=== PATIENT | female | born 1940 | race Caucasian/White ===

== ENCOUNTER 2016-08-03 10:21 | Emergency (ER) | payer OTHER ==
[2016-08-03] VITALS (10 sets, daily range): BP systolic 128–206; BP diastolic 67–96; PULSE 65–84; TEMP 36.8–36.9; O2SAT 91–97; Ht 162.6 cm; Wt 100.0 kg
[~2016-08-03] VITALS: Ht 162.6 cm; Wt 100.0 kg
[~2016-08-03 10:21] MED LIST: AMLO-114 PO; ASPI-113 PO; ATEN50TA8 PO; CHOL100010 PO; CLB/200 PO; CLON0.2T PO; CLTP PO; CTP2 PO; GLUCTAB7; HYDR-5688 PO; MULT-506 PO; OXYC-164 PO; SIMV10TA2 PO
--- NOTE | 2016-08-03 11:24 | DIAGNOSTIC IMAGING REPORT ---
RIGHT HIP UNILATERAL 2 VIEWS CLINICAL HISTORY: Possible dislocation. Right hip pain. COMPARISON: Pelvis and right hip radiographs December 30, 2012. FINDINGS: There is superolateral dislocation of the femoral component of the right hip arthroplasty with respect to the acetabular cup. No associated fracture is identified. IMPRESSION: Dislocated femoral component of the right hip arthroplasty. Electronically signed by: Abdifatah Velasquez M.D. 08/03/2016 11:23 AM Dictated Date/Time: 08/03/2016 11:22 AM
[2016-08-03] MEDS ORDERED: ONDANSETRON INJ 2 MG/ML 2 ML VIAL IV STA (11:27)
[2016-08-03] MEDS ORDERED: MoRPHine SULFATE 4 MG/ML 1 ML CARP\\VIAL IV STA (11:27)
--- NOTE | 2016-08-03 11:27 | DIAGNOSTIC IMAGING REPORT ---
CHEST ONE VIEW PORTABLE CLINICAL HISTORY: HIP DISLOCATION COMPARISON STUDY: Chest radiograph December 29, 2012. FINDINGS: No pneumothorax or pleural effusion is present. Mild to moderate cardiomegaly is unchanged. There is no evidence of pulmonary edema. There may be pulmonary vascular congestion. This is unchanged. No consolidation is identified. IMPRESSION: Mild to moderate cardiomegaly with pulmonary vascular congestion. No overt pulmonary edema. Electronically signed by: Abdifatah Velasquez M.D. 08/03/2016 11:26 AM Dictated Date/Time: 08/03/2016 11:25 AM
[2016-08-03] MEDS ORDERED: ASPI-461 PO (11:35)
[2016-08-03] MEDS ORDERED: CLON0.2T PO (11:37)
[2016-08-03] MEDS ORDERED: ATEN-173 PO (11:41)
[2016-08-03] MEDS ORDERED: CALC500C70 PO (11:43)
[2016-08-03] MEDS ORDERED: MELO7.5T5 PO (11:46)
[2016-08-03] MEDS ORDERED: CHOL1000 PO (11:47)
[2016-08-03] MEDS ORDERED: IBUP-103 PO (11:49)
[2016-08-03] MEDS ORDERED: MoRPHine SULFATE 10 MG/ML CARP/VIAL IV STA (12:19)
[2016-08-03] MEDS ORDERED: PROPOFOL IV EMULSION 10 MG/ML 20 ML VIAL IV ONE (13:30)
--- NOTE | 2016-08-03 13:58 | EMERGENCY ROOM VISIT NOTE ---
ED Visit Note First contact with patient: 11:17 I did evaluate and examine this patient myself. I did guide management for the patient. I agree with the PA's assessment as discussed. Please see the PAs dictation for further details. I did independently review the x-rays. She does have a hip dislocation. The hip was reduced by orthopedics under conscious sedation. I did perform the conscious sedation portion. Procedural Sedation Indication hip dislocation. Total time: 10 minutes. 13:45-55 Written consent was obtained after the risks and benefits were explained to the patient, including, but not limited to aspiration, allergic reaction, breathing difficulties, cardiac complications, vomiting, pain, event recall, bleeding, and /or infection. Pre-sedation examination and paperwork completed. The patient was on 100% oxygen via NRB prior to the procedure. Continous end tidal CO2 monitoring, pulse oximetry, and cardiac monitoring were utilized. Suction, airway equipment, medications, respiratory equipment, and appropriate personnel were prepared prior to the initiation of the procedure. A time out was taken. Sedation was achieved utilizing 100 mg of propofol. After I observed the patient had reached the appropriate level of sedation the main procedure was performed without complication. Sedation was discontinued and the monitoring continued. The patient recovered quickly from the effects of the medication without complication or adverse event.
--- NOTE | 2016-08-03 14:51 | DIAGNOSTIC IMAGING REPORT ---
SINGLE VIEW PELVIS; SINGLE VIEW RIGHT HIP CLINICAL HISTORY: Postreduction examination. FINDINGS: An AP portable view of the pelvis with a crosstable lateral portable view of the right hip are correlated with radiographs of the right hip performed 08/03/2016. The skeletal structures are osteopenic. No fracture is seen in the hips or bony pelvis. There has been successful reduction of the dislocated right hip arthroplasty with gnosticist of near anatomic alignment. A left hip arthroplasty is noted. Sclerotic change is identified in the sacroiliac joints. There is a nonobstructed abdominal bowel gas pattern. The overlying soft tissues are within normal limits. IMPRESSION: 1. There as been successful reduction of the dislocated right hip arthroplasty as compared to today's earlier examination. 2. No fracture is seen. Electronically signed by: Tacos Maynard M.D. 08/03/2016 2:50 PM Dictated Date/Time: 08/03/2016 2:48 PM
--- NOTE | 2016-08-03 16:28 | CONSULTATION REPORT ---
DATE OF CONSULTATION: 08/03/2016 DATE OF CONSULTATION: 08/03/2016. REASON FOR CONSULT: Right dislocated hip. HISTORY OF PRESENT ILLNESS: The patient is a 76-year-old white female known to our practice who states that this morning around 9:00 she was tying her shoes. When she went to tie her one shoe she ended up leaning forward and then felt the hip dislocate on the right side. She states that she had immediate pain and was unable to ambulate and was brought to the Emergency Room by her family. She was seen by the staff. X-rays were taken and it was found that she did have a dislocated right REYMUNDO. The patient had her total hip arthroplasty done by Dr. Rusty Delaney in 2003. She states that she has had several dislocations with his hip in the past; however it was not culminating in a dislocation every other week and the time she was actually seen for a dislocation of her right hip was in 2012 and was put back into place by Dr. Mendoza at that time. This is her third dislocation of the hip. Currently, she is in no acute distress and states she is having pain with her right hip whenever she tries to move it. PAST MEDICAL HISTORY: Hypertension, hypercholesterolemia, obesity, osteoarthritis. PAST SURGICAL HISTORY: She has had right and left total knee replacements, left total hip replacement, right total hip replacement. She has had a hysterectomy, cholecystectomy and left hand surgery. FAMILY HISTORY: Noncontributory. SOCIAL HISTORY: The patient does not use alcohol or tobacco. MEDICATIONS: Amlodipine 10 mg p.o. daily, aspirin 81 mg p.o. daily, atenolol 25 mg p.o. daily, Os-Toni 500 plus D 1 tab p.o. b.i.d., vitamin D3 1 tab p.o. daily, clonidine 0.4 mg at bedtime and 0.2 mg p.o. q.a.m., glucosamine chondroitin 1 tab daily, ibuprofen 200 mg p.o. daily, Meloxicam 7.5 mg p.o. daily, multivitamin 1 tab p.o. daily and Zocor 10 mg p.o. q.p.m. ALLERGIES: ATORVASTATIN, INDAPAMIDE, LISINOPRIL AND PENICILLINS. REVIEW OF SYSTEMS: No recent fevers, chills, night sweats, unexplained weight loss or weight gain. No flu or cold-like symptoms. No increased cough or sputum production. No increased shortness of breath at rest or on exertion. No chest pain, chest pressure, irregular heartbeat. No abdominal pain. No nausea, vomiting, diarrhea. No hematemesis, melena, hematochezia. No hematuria, pyuria, dysuria. No dizziness, lightheadedness, spinning sensations. PHYSICAL EXAMINATION: VITAL SIGNS: At the time that I saw her showed temperature 36.8, pulse 74, respirations 16, BP 195/88, pulse ox 94 on room air. GENERAL: The patient is a pleasant 76-year-old white female who appears her stated age. She is pleasant and cooperative and in no acute distress complaining of right hip discomfort when she tries to move it. SKIN: Warm and dry. Turgor is good. EXTREMITIES: On examination of her right lower extremity, it is shortened and externally rotated compared to the left. She has scars on both knees from previous TKA and a scar from her previous left REYMUNDO noted on her left lower extremity. Trying to move the right lower extremity causes her exquisite tenderness in the right hip and groin and range of motion is limited at this time. She is nontender in the right knee and I can move the right knee somewhat slightly at this time that is nontender but it causes pain in the right hip and is left essentially alone because of her right hip dislocation this time. She has good range of motion of her right ankle actively and passively and has good sensation and dorsalis pedis pulses 2/4 bilaterally. NEUROLOGICAL: Cranial nerves II-XII appear to be intact. DIAGNOSIS: Dislocation, right total hip arthroplasty. PLAN: The case has been discussed with Dr. Rusty Delaney who has asked me to attempt a closed reduction in the Emergency Room. Procedures done in the Emergency Room. I discussed with the patient risks and benefits of doing a closed reduction in the Emergency Room being but not limited to inability to close reduce the hip, fracture, neurovascular injury, bleeding. The patient was in agreement to go ahead and try to have the hip reduced in the Emergency Room. Dr. Feliciano was present and had the patient sign a consent for conscious sedation and he explained the risks and benefits of which the patient was in agreement to. At that point in time Dr. Feliciano administered conscious sedation and after the patient was sedated I took the right lower extremity in both hands and with gentle flexion of the knee and hip and then longitudinal traction with internal rotation successfully reduced the right total hip arthroplasty without difficulty. Once the hip was put back into place, pulses were still 2/4 bilaterally and capillary refill is less than 2 seconds in the right foot. Once the patient had awoken from conscious sedation she still had good range of motion of her right ankle and toes. She did attempt to flex the hip and got it to approximately 30 degrees before I asked her to stop at that point. No knee pain in the right knee and she did have good range of motion of the knee at that time. Exam while she was under conscious sedation proved I could get the hip to 90 degrees without it dislocating and with internal and external rotation it appeared to be stable. She had no pronounced shuck after putting the hip back into place. Post-reduction films were ordered and did show reduction of the dislocated right REYMUNDO with no fractures identified. The patient was then put through some physical therapy and ambulated 40 feet and was instructed in total hip precautions. Further plans will be to have the patient continue to follow her total hip arthroplasty precautions until seen back in the office by Dr. Óscar Delaney. She can be weightbearing as tolerated. [facility]
--- NOTE | 2016-08-03 19:23 | EMERGENCY ROOM VISIT NOTE ---
History First contact with patient: 11:17 Chief Complaint: HIP PAIN Stated Complaint: HIP PAIN History of Present Illness The patient is a 76 year old female who presents to the Emergency Room with complaints of right hip pain. The patient reports that she put her right foot up on the second step while attempting to tie her shoes. She felt her hip pop, with immediate onset of pain and inability to bear weight. The patient was then transported here via ambulance for further evaluation. The patient reports that this is now her third PIP dislocation. Her primary total hip arthroplasty was performed in June [address] Delaney. Subsequent dislocations occurred in February 2008 and December 2012. Her last dislocation, reduction was unable to be performed under conscious sedation in the emergency department, and had to have surgical intervention/sedation. The patient denies falling or any other injuries from this incident. She rates her discomfort an 8 out of 10. Review of Systems 10 system review was performed and was negative except for pertinent positives and negatives as indicated in history of present illness Past Medical/Surgical History Medical Problems: (1) Body Mass Index 36.0-36.9, Adult (2) Calculus Of Kidney (3) Calculus Of Ureter (4) Hyperlipidemia Nec/Nos (5) Hypertension Nos (6) Obesity, Nos (7) Obstructive Sleep Apnea (Adult) (Pediatric) Surgical Problems: (1) Hip Joint Replacement Status (2) Knee Joint Replacement Status Family History Unremarkable Social History Smoking Status: Never Smoker Alcohol Use: none Marital Status: Housing Status: lives alone Occupation Status: retired Current/Historical Medications Scheduled Amlodipine (Norvasc), 10 MG PO DAILY Aspirin (Aspirin), PO DAILY Atenolol (Tenormin), 25 MG PO DAILY Calcium/Vitamin D (Os-Toni 500 Plus D), 1 TAB PO BID Cholecalciferol (Vitamin D3), 1 TAB PO DAILY Clonidine Hcl (Catapres), 0.4 MG PO HS Clonidine Hcl (Catapres), 0.2 MG PO QAM Wzqadwepmxl-Iwnjviijsov-Jti C- (Glucosamine Chondroitin), 1 TAB DAILY Ibuprofen Tab (Advil), 200 MG PO DAILY Meloxicam (Mobic), 7.5 MG PO DAILY Multivitamin (Multivitamin), 1 TAB PO DAILY Simvastatin (Zocor), 10 MG PO QPM Allergies Coded Allergies: Penicillins (Verified Allergy, Intermediate, RASH, 08/03/16) Atorvastatin (Verified Allergy, Unknown, MULTIPLE BRUISES, 08/03/16) Indapamide (Unverified Adverse Reaction, Unknown, LOWERED POTASSIUM, ) Lisinopril (Unverified Adverse Reaction, Unknown, ., 08/03/16) DOESN'T REMEMBER REACTION, IT HAS BEEN SO LONG AGO Physical Exam Vital Signs Date Time Temp Pulse Resp B/P Pulse Ox O2 Delivery O2 Flow Rate FiO2 08/03/16 15:30 83 18 171/95 91 08/03/16 14:58 78 16 177/100 95 Room Air 08/03/16 14:17 36.9 84 22 152/74 94 Room Air 08/03/16 14:15 69 20 154/67 93 Room Air 08/03/16 14:10 65 20 143/68 95 Room Air 08/03/16 14:05 76 22 147/72 94 Room Air 08/03/16 14:05 79 08/03/16 14:00 81 22 147/72 94 Room Air 08/03/16 13:55 74 20 128/67 93 Nasal Cannula 4.0 08/03/16 13:50 66 24 152/82 93 Nasal Cannula 4.0 08/03/16 13:45 81 20 206/96 94 Nasal Cannula 2.0 08/03/16 13:40 74 16 195/88 94 Room Air 08/03/16 12:58 36.8 72 19 177/79 97 Room Air 08/03/16 11:44 72 16 172/77 92 Nasal Cannula 2.0 08/03/16 10:30 36.8 78 16 234/153 97 Room Air Physical Exam CONSTITUTIONAL: Healthy and well nourished. Alert and oriented X 3 with positive affect. Patient appears in moderate discomfort. HEENT: Normocephalic, atraumatic. Pupils equal, round and reactive. NECK: Full active range of motion without discomfort. RESPIRATORY: Clear to auscultation bilaterally with no wheezing, crackles, rhonchi or stridor. CARDIOVASCULAR: Regular rate and rhythm with no murmurs, rubs or gallops. GASTROINTESTINAL: Bowel sounds present in all quadrants. Soft and nontender to palpation. MUSCULOSKELETAL: Examination shows shortening and external rotation of the right lower extremity. Pedal pulses are intact. No tenderness to palpation about the knee. INTEGUMENTARY: No rash or other significant dermatologic conditions noted. NEUROLOGIC: No focal neurologic deficits noted. Right foot and toes are sensory intact. Medical Decision & Procedures ER Provider Diagnostic Interpretation: My interpretation of right hip x-ray shows a dislocation without any obvious fractures or prosthesis/periprosthesis changes. Radiologist report is as follows: RIGHT HIP UNILATERAL 2 VIEWS CLINICAL HISTORY: Possible dislocation. Right hip pain. COMPARISON: Pelvis and right hip radiographs December 30, 2012. FINDINGS: There is superolateral dislocation of the femoral component of the right hip arthroplasty with respect to the acetabular cup. No associated fracture is identified. IMPRESSION: Dislocated femoral component of the right hip arthroplasty. Medications Administered Medications (Trade) Dose Ordered Sig/Marily Route Start Time Stop Time Status Last Admin Dose Admin Morphine Sulfate (MoRPHine SULFATE INJ) 4 mg NOW STAT IV 08/03/16 11:27 08/03/16 11:28 DC 08/03/16 11:37 4 MG Ondansetron HCl (Zofran Inj) 4 mg NOW STAT IV 08/03/16 11:27 08/03/16 11:28 DC 08/03/16 11:37 4 MG Morphine Sulfate (MoRPHine SULFATE INJ) 6 mg NOW STAT IV 08/03/16 12:19 08/03/16 12:20 DC 08/03/16 12:34 6 MG ED Course Patient history and physical exam were performed. Nurse's notes were reviewed. Vital signs were reviewed, showing an elevated blood pressure. IV access was established prior to my exam. The patient was administered morphine 4 mg and Zofran 4 mg IVP. X-rays of the right hip confirmed a prosthetic hip dislocation. The case was then discussed with Narciso Galeana PA-C, who came to the emergency department for further evaluation. Hip reduction was performed under conscious sedation, which was performed by Dr. Feliciano, ED attending physician, who also evaluated the patient prior to reduction procedure. As reduction x-rays were normal without any evidence for fracture. In-house physical therapy was also consulted for reevaluation. The patient tolerated ambulation. Hip care precautions were rediscussed with the patient. PT suggested additional at home therapy. I did ask PT to discuss this with Narciso in order to order physical therapy. The patient will contact [facility] for further close follow-up. The patient was instructed to return to the emergency department for any recurrent dislocation, severe pain or other concerning symptoms. The patient was happy with plan of care, and denied any significant pain at the time of discharge. Impression Primary Impression: Recurrent dislocation, right hip Departure Information Referrals Jose Enrique Malloy M.D. (PCP) Patient Instructions My [facility]
== END 2016-08-03 15:30 | disposition home or self-care (01) ==
LOC: EDBD 10:21 → C.EDB 10:24
DX: T84.020A Dislocation of internal right hip prosthesis, initial encounter (principal); Y83.1 Surgical operation with implant of artificial internal device as the cause of abnormal reaction of the patient, or of later complication, without mention of misadventure at the time of the procedure; E66.9 Obesity, unspecified; Z68.36 Body mass index [BMI] 36.0-36.9, adult; E78.00 Pure hypercholesterolemia, unspecified; I10 Essential (primary) hypertension; E78.5 Hyperlipidemia, unspecified; Z96.641 Presence of right artificial hip joint; Z96.653 Presence of artificial knee joint, bilateral; Z96.643 Presence of artificial hip joint, bilateral; Z90.710 Acquired absence of both cervix and uterus; Z90.49 Acquired absence of other specified parts of digestive tract; Z98.890 Other specified postprocedural states; Z79.82 Long term (current) use of aspirin; Z79.899 Other long term (current) drug therapy

== ENCOUNTER → 2017-03-15 | Outpatient (CLI) | payer OTHER ==
[~2017-03-15] MED LIST changes: -ASPI-113 PO; +ASPI-461 PO; +ATEN-173 PO; -ATEN50TA8 PO; +ATROPINE SULFATE 0.1 MG/ML 5ML SYR ONE; +CALC500C70 PO; +CHOL1000 PO; -CHOL100010 PO; -CLB/200 PO; -CLTP PO; -CTP2 PO; +DOBUTamine 500MG / 250ML D5W ONE; -HYDR-5688 PO; +IBUP-103 PO; +MELO7.5T5 PO; +METOPROLOL TARTRATE 1 MG/ML VIAL ONE; -OXYC-164 PO; +PERFLUTREN LIPID MICROSPHERE (DEFINITY) IV ONE
--- NOTE | 2017-03-15 16:31 | DOBUTAMINE ECHO ---
*NOTICE TO RECEIVING LIBERTARIAN AGENCY This information is strictly Confidential and protected under [place] law. [place] law prohibits you from making any further disclosure of this information unless further disclosure is expressly permitted by the written consent of the person to whom it pertains or is authorized by law. A general authorization for the release of medical or other information is not sufficient for this purpose. Hospital accepts no responsibility if the information is made available to any other person, INCLUDING THE PATIENT. Interpretation Summary * Name: VITO LYON Study Date: 03/15/2017 01:43 PM BP: 134/92 mmHg * Patient Location: [facility] HR: 67 * : 1940 (M/d/yyyy) Gender: Female Height: 65 in * Age: 77 yrs Ethnicity: [place] Weight: 209 lb * Ordering Physician: Carlitos Delgado * Referring Physician: Carlitos Delgado * Performed By: Gabriel Carrasquillo [facility] * * Reason For Study: Pre-Op Clearance * BSA: 2.0 m2 * -- Conclusions -- * Nonischemic dobutamine stress echocardiogram. * No arrhythmias. * Normal HR and BP response to dobutamine infusion. * Normal LV chamber size and wall thickness. * Normal LV systolic function, EF 55-60%. * No segmental left ventricular wall motion abnormalities are noted. * Grade I diastolic dysfunction. * Trace mitral regurgitation. Procedure Details * DOBUTAMINE ECHO, CPT#[id number] * ECHO COLOR FLOW, CPT #[id number] * ECHO DOPPLER, CPT #[id number] * A contrast injection of Definity was performed to improve assessment of LV function. * Contrast was injected into an intravenous site in the left arm. * One vial of Definity ultrasound contrast was diluted in normal saline to a total volume of 10 ml. A total of '9' ml of solution was administered during imaging. * Lot # [id number] of Definity utilized for procedure. * Expiration date . * The attending nurse who injected the contrast agent was Darian Mcdaniel RN. Left Ventricle * The left ventricle is normal in size. * There is normal left ventricular wall thickness. * Ejection Fraction = 55-60%. * Left ventricular systolic function is normal. * No segmental left ventricular wall motion abnormalities are noted. * The left ventricular wall motion is normal at rest. * Resting wall motion: Normal. Stress wall motion: Appropriate increase in Left ventricular systolic function and decrease in cavity size. No stress induced segmental wall motion abnormalities. Right Ventricle * The right ventricular cavity size is normal (basal dimension <4.2 cm in right ventricular apical 4-chamber view). * The right ventricular systolic function is normal as assessed by tricuspid annular plane systolic excursion (TAPSE) (normal >1.5 cm). Atria * The left atrium is mildly dilated. * Right atrial size is normal. * No ASD detected; PFO is not assessed. Mitral Valve * The mitral valve is normal in structure and function. Tricuspid Valve * The tricuspid valve is normal in structure and function. Aortic Valve * The aortic valve is not well visualized. * No hemodynamically significant valvular aortic stenosis. * There is no significant aortic regurgitation. Pulmonic Valve * The pulmonary valve is not well seen, but the Doppler examination is normal without significant regurgitation or stenosis. Great Vessels * The aortic root is normal size. Pericardium * There is no pericardial effusion. Stress Parameters * Normal baseline electrocardiogram. * Stress ECG: No ST changes. No arrhythmias. * No arrhythmia were noted with stress. * The stress portion of this study was personally supervised by the undersigned interpreting physician. * Rest heart rate was '67' BPM. * Rest blood pressure was '134/92' * Maximum heart rate achieved was 133 bpm. * Maximum heart rate was 93 % of maximum age-predicted heart rate. * Maximum blood pressure was '216/74' * Maximum Dobutamine infusion rate was '40' mcg/kg/min. * A total of .75 mg of intravenous Atropine was used to supplement Dobutamine for heart rate response. * Dobutamine infusion was terminated due to achieving target heart rate * A total of 10 mg of IV Metoprolol was administered to reverse Dobutamine-induced tachycardia. * The patient did not exhibit any symptoms during drug infusion. * Normal blood pressure response to exercise. Left Ventricular Diastolic Function * Grade I diastolic dysfunction, (abnormal relaxation pattern). MMode 2D Measurements and Calculations IVSd 0.97 cm IVSs 1.2 cm LVIDd 4.1 cm LVIDs 2.8 cm LVPWd 10 cm LVPWs 1.3 cm IVS/LVPW 0.97 FS 32.1 % EDV(Teich) 72.9 ml ESV(Teich) 28.6 ml EF(Teich) 60.7 % EDV(cubed) 67.3 ml ESV(cubed) 21.1 ml EF(cubed) 68.7 % % IVS thick 28.1 % % LVPW thick 34.3 % LV mass(C)d 127.9 grams LV mass(C)dI 63.5 grams/m\S\2 LV mass(C)s 110.6 grams LV mass(C)sI 54.9 grams/m\S\2 SV(Teich) 44.3 ml SI(Teich) 22.0 ml/m\S\2 SV(cubed) 46.2 ml SI(cubed) 22.9 ml/m\S\2 Ao root diam 3.5 cm Ao root area 9.8 cm\S\2 ACS 1.4 cm LA dimension 4.3 cm LA/Ao 1.2 Doppler Measurements and Calculations MV E max jimbo 92.2 cm/sec MV A max jimbo 107.8 cm/sec MV E/A 0.86 MV P1/2t max jimbo 104.6 cm/sec MV P1/2t 82.1 msec MVA(P1/2t) 2.7 cm\S\2 MV dec slope 373.1 cm/sec\S\2 MV dec time 0.26 sec Ao V2 max 122.3 cm/sec Ao max PG 6.0 mmHg Ao max PG (full) 3.2 mmHg LV V1 max PG 2.8 mmHg LV V1 max 83.8 cm/sec PA V2 max 92.7 cm/sec PA max PG 3.4 mmHg TR max jimbo 260.3 cm/sec
== END | disposition home or self-care (01) ==
LOC: C.CPL 13:01
PROVIDERS: ATTEND Internal Medicine Interventional Cardiology
DX: Z01.810 Encounter for preprocedural cardiovascular examination (principal)

== ENCOUNTER 2022-10-11 06:35 | Observation (INO) ==
--- NOTE | 2022-10-01 11:34 | Anesthesiology Consultation ---
Date of Service October 01, 2022 Assessment & Plan (1) Encounter for pre-operative examination: - COVID screening: Per assessment on 09/30: No known COVID-19 positive contacts or current COVID-19 related symptoms. Travel screen negative. Patient vaccinated. At surgeon discretion if preop Covid testing being done. - Preop EKG: EKG performed 09/22/22 was NSR, Inferior infarct, Possible anterior lateral infarct > Inferior infarct and cannot r/o anterior infarct noted on 03/04/2017 EKG (scanned into [facility])- subsequent stress echo done 03/2017 which was unremarkable. Case reviewed with Dr. Martinez who personally reviewed previous EKG reports. He feels that patient okay to proceed with given surgery as scheduled as long as patient does not have significantly decreased functional status/cardiopulmonary limiting complaints. Called patient 10/01/22- she indicates no cardiopulmonary limiting complaints with daily activity. No chest pain or SOB with ambulation typically (does occasionally get SOB when back spasms occur after she walks for a long distance- she states that this is a chronic issue/unchanged). - Patient acceptable to proceed with given surgery as scheduled pending evaluation AM DOS. Chart Review Chart Review: Patient NOT seen in Pre Admission Testing History Surgery Operation Date: 10/11/22 08:25 Proposed Procedures p Left Breast Mastectomy and Left [place] Lymph Node Biopsy - Kevin Conner MD Height/Weight Height: 5 ft 5 in Weight: 99.79 kg Allergies Allergy/AdvReac Type Severity Reaction Status Date / Time Penicillins Allergy Intermediate RASH Verified 09/30/22 15:06 atorvastatin Allergy Unknown MULTIPLE Verified 09/30/22 15:06 BRUISES indapamide AdvReac Unknown LOWERED Unverified 09/30/22 15:06 POTASSIUM lisinopril AdvReac Unknown Unknown Unverified 09/30/22 15:06 Medications Home Medications Medication Instructions Recorded Confirmed Last Taken allopurinol 300 mg tablet 300 mg PO QAM 09/30/22 09/30/22 Unknown amlodipine 10 mg tablet 10 mg PO QAM 09/30/22 09/30/22 Unknown aspirin 81 mg capsule 81 mg PO QAM 09/30/22 09/30/22 Unknown atenolol 50 mg tablet 50 mg PO QAM 09/30/22 09/30/22 Unknown clonidine HCl 0.2 mg tablet 0.2 mg PO UD 09/30/22 09/30/22 Unknown gabapentin 100 mg capsule 100 mg PO HS 09/30/22 09/30/22 Unknown meloxicam 15 mg tablet 15 mg PO DAILY PRN Pain 09/30/22 09/30/22 Unknown multivitamin 1 tab PO QAM 09/30/22 09/30/22 Unknown peg 400-propylene glycol 0.4 %-0.3 1 drp ophthalmic (eye) DAILY PRN ud 09/30/22 09/30/22 Unknown % eye drops (Systane (propylene glycol)) potassium citrate 10 mEq (1,080 2,160 mg PO BID 09/30/22 09/30/22 Unknown mg) tablet,extended release simvastatin 10 mg tablet 10 mg PO HS 09/30/22 09/30/22 Unknown Past Medical History Medical History Back muscle spasm Breast cancer, left Cataract Gout Hearing deficit BL FRENCH HLD (hyperlipidemia) HTN (hypertension) Nephrolithiasis Osteoarthritis Overactive bladder Sleep apnea unable to tolerate CPAP Past Surgical History Surgical History History of cholecystectomy History of colonoscopy History of hand surgery left History of hysterectomy History of left hip replacement History of left knee replacement History of left shoulder replacement History of lithotripsy History of nephrolithotomy with removal of calculi History of right hip replacement History of right knee joint replacement History of right shoulder replacement Social History Smoking Status: Never smoker Do You Dip or Chew Tobacco: No Hx Alcohol Use: No Hx Substance Use: No substance use type: does not use Testing Laboratory Results 09/22/22 WBC 10.97 H/H 16.9/50.4 PLATELETS 202 SODIUM 143 POTASSIUM 4.4 CHLORIDE 106 CO2 23 BUN 12 CREATININE 0.7 GLUCOSE 104 Electrocardiogram Date: 09/22/22 Normal sinus rhythm at 63 bpm. LAD. Inferior infarct. Possible anterior lateral infarct. Inferior infarct and cannot r/o anterior infarct noted on 03/04/2017 EKG (scanned into [facility])- subsequent stress echo done 03/2017 which was unremarkable. Chest X-Ray Date: 05/26/22 XR T-spine, XR ribs including PA CXR 4 views No acute osseous abnormality identified in the thoracic spine. S-shaped scoliosis with moderate to marked multilevel changes. No acute osseous abnormality identified in the ribs. No evidence for pneumothorax or acute chest abnormality on expiratory imaging. Probable bilateral renal calculi. Stress Test Date: 03/15/17 Type: DSE Nonischemic dobutamine stress echo. EF 55-60%. Grade 1 diastolic dysfunction. Trace MR. Mild LAD. 93% MPHR.
[~2022-10-11 06:35] MED LIST changes: -AMLO-114 PO; -ASPI-461 PO; -ATEN-173 PO; -ATROPINE SULFATE 0.1 MG/ML 5ML SYR ONE; -CALC500C70 PO; -CHOL1000 PO; +CLINDA 900 MG **Premixed Bag IV SCH; -CLON0.2T PO; -DOBUTamine 500MG / 250ML D5W ONE; +ENOXAPARIN INJ 30 MG/0.3 ML SYR SQ SCH; -GLUCTAB7; -IBUP-103 PO; +LACTATED RINGER'S 1,000 ML IV SCH; -MELO7.5T5 PO; -METOPROLOL TARTRATE 1 MG/ML VIAL ONE; -MULT-506 PO; -PERFLUTREN LIPID MICROSPHERE (DEFINITY) IV ONE; -SIMV10TA2 PO
--- NOTE | 2022-10-11 06:56 | History & Physical Bridge Note ---
Date of Service October 11, 2022 History & Physical Bridge Note I have examined the patient, reviewed the History & Physical and in the interval since the performance of the History & Physical I have noted the following changes of clinical significance: no changes noted
--- NOTE | 2022-10-11 09:05 | Nuclear Medicine Report ---
LYMPHOSCINTIGRAPHY CLINICAL HISTORY: Left-sided breast cancer. PROCEDURE: Using standard sterile technique, 4 intradermal and one deep injection of 506.88 uCi of Ly mphoseek was placed in the left breast. The patient tolerated the procedure well. There were no immed iate complications. The patient was subsequently transported to the surgical suite. Post injection im age obtained at 15 minutes demonstrates sentinel node uptake within the left axilla. Indelible marker was used and a deni was placed on the skin surface superficial to the sentinel lymph node. IMPRESSION: Completed injection of Lymphoseek into the left breast. ACT 112: Negative or not required by law. Electronically signed by: Shaq Garcia M.D. 10/11/2022 9:03 AM
[2022-10-11] MEDS ORDERED: fentaNYL citrate PF 100 MCG/2 ML VIAL ONE ×2 (09:42→11:37)
[2022-10-11] MEDS ORDERED: PROPOFOL IV EMULSION 10 MG/ML 20 ML VIAL IV ONE (09:42)
[2022-10-11] MEDS ORDERED: LIDOCAINE 2% 2 ML VIAL/AMP(20MG/ML) INFIL ONE (09:42)
[2022-10-11] MEDS ORDERED: BUPIVACAINE/EPINEPHRINE 0.25% 1:200,000 30 ML VIAL ONE (10:32)
[2022-10-11] MEDS ORDERED: METHYLENE BLUE 0.5% 10 ML VIAL ONE (10:45)
[2022-10-11] MEDS ORDERED: BUPIVACAINE LIPOSOME 1.3% 266 MG/20 ML VIAL ONE (10:46)
[2022-10-11] MEDS ORDERED: ONDANSETRON INJ 2 MG/ML 2 ML VIAL ONE (12:10)
[2022-10-11] MEDS ORDERED: DEXAMETHASONE SOD INJ 4 MG/ML VIAL ONE (12:10)
[2022-10-11] MEDS ORDERED: hydrALAZINE HCL 20 MG/ML VIAL ONE (12:10)
[2022-10-11] MEDS ORDERED: GLYCOPYRROLATE 0.2 MG/ML VIAL ONE (12:37)
--- NOTE | 2022-10-11 12:52 | Post Operative Brief Note ---
Immediate Post Op Note v1 Date of Surgery October 11, 2022 Pre & Post Diagnosis Operation Date: 10/11/22 09:35 Pre-Op Diagnosis: Lobular Carcinoma of Left Breast Post-Op Diagnosis: Lobular Carcinoma of Left Breast I identified the patient and participated in the time-out.: Yes Procedure Operation Date: 10/11/22 09:35 Actual Procedures p Left Breast Mastectomy and Left [place] Lymph Node Biopsy(Left) - Kevin Conner MD Surgeon Kevin Conner MD Staff Psychiatrist KEIKO Laurent assisted with tissue retraction, camera op, closure Estimated Blood Loss 10 Findings Consistent with Post-Op Diagnosis Drains Cullen-Batista Drain (10 stateless flat cullen-batista drain inserted into left chest during procedure by Dr. Lundberg)
--- NOTE | 2022-10-11 12:57 | Operative Report ---
Post Operative Report Pre & Post Diagnosis Operation Date: 10/11/22 09:35 Pre-Op Diagnosis: Lobular Carcinoma of Left Breast Post-Op Diagnosis: Lobular Carcinoma of Left Breast I identified the patient and participated in the time-out.: Yes Procedure Operation Date: 10/11/22 09:35 Actual Procedures p Left Breast Mastectomy and Left [place] Lymph Node Biopsy(Left) - Kevin Conner MD Surgeon Kevin Conner MD Mapping Specialist KEIKO Laurent assisted with tissue retraction, camera op, closure Estimated Blood Loss 10 Findings Consistent with Post-Op Diagnosis Specimens Left breast mastectomy [place] lymph node x1, hot and blue, 1605 counts Drains 10 flat MIMI Anesthesia Type General Complications No immediate complications Description of Procedure Patient taken to the operating room, placed supine on the operating table. A timeout was performed, perioperative antibiotics were ministered, SCD boots were placed. After adequate anesthesia and analgesia was obtained, the chest and axilla were prepped and draped in the normal sterile fashion. Methylene blue dye was injected into and around the nipple areolar complex on the left and massaged into the lymphatics. An elliptical incision was drawn out on the left chest wall to encompass the mastectomy down towards the axilla. Local anesthetic, Marcaine mixed with Xarelto was injected into and around the area of the left chest wall. Incision was made with a 15 blade scalpel carried out through the previously drawn marked incision. This was carried into the subcutaneous tissue. Flaps were raised in a 360 degree fashion between the breast tissue underneath and the subcutaneous tissue below the skin. The upper flap was raised first. The limit of the dissection was the pectoralis major muscle near the clavicle. This flap was extended laterally into the axilla. At this point, the neoprobe was used to identify the sentinel lymph node. It was dissected free circumferentially and removed. The lymphatics were tied with 3-0 silk suture. The count on the sentinel node was 1605. The background radiation was less than 9. The sentinel lymph node appeared slightly enlarged, however there is no other bulky adenopathy within the axilla. We continued with the dissection on the chest wall. The limits of the dissection were the sternum medially, the axillary fat pad laterally, and the fascia of the rectus abdominis muscle inferiorly. Once the breast was dissected free from the overlying tissue, it was removed from the chest wall with the Bovie electrocautery, taking care to remove the fascia along with the specimen. Large vessels were taken with the harmonic scalpel. The breast was oriented with sutures and ink and sent off field for specimen. Attention was turned to hemostasis. The wound was copiously irrigated, and ag ain hemostasis was checked and attended to and was excellent. A 10 Chinese flat MIMI drain was placed through separate stab incision and was secured with a 3-0 nylon suture. The subcutaneous tissue was closed with interrupted 3-0 Vicryl sutures. The skin was closed with a running 4-0 Monocryl subcuticular stitch. Dermabond was applied. Dressings were applied. She tolerated the procedure without complication, was transferred in stable condition to the PACU. All instrument, needle, and sponge counts were correct at the end of the case. My export sales assistant was necessary throughout the procedure for tissue retraction, possible camera operation, and closure of the wounds. I understand that section 1842(b)(7)(D) of the Social Security act generally prohibits Medicare physician fee schedule payment for the services of assistants at surgery in teaching hospitals when qualified residents are available to furnish such services. I certify that the services for which payment is claimed were medically necessary and that no qualified resident was available to perform the services. I further understand that these services are subject to postpayment review by the Medicare carrier. I attest to the content of the Intraoperative Record and any orders documented therein. Any exceptions are noted below.
[2022-10-11] MEDS ORDERED: oxyCODONE/ACETAMINOPHEN 5mg/325mg TAB PO PRN (14:00)
[2022-10-11] MEDS ORDERED: diphenhydrAMINE Capsule 25 MG CAP PO PRN (14:00)
[2022-10-11] MEDS ORDERED: PROMETHAZINE HCL 12.5 MG in SODIUM CHLORIDE 0.9% 50 ML IV PRN (14:00)
[2022-10-11] MEDS ORDERED: ONDANSETRON INJ 2 MG/ML 2 ML VIAL IV PRN (14:00)
[2022-10-11] MEDS ORDERED: MoRPHine SULFATE 2 MG/ML CARP IV PRN (14:00)
--- NOTE | 2022-10-11 14:28 | Anesthesiology Progress Note ---
Date of Service October 11, 2022 Anesthesia Post Procedure Vital Signs Vital Signs: Temp Pulse Pulse Resp BP Pulse Ox O2 Del Method 10/11/22 14:00 36.5 C 67 16 132/69 94 Room Air 10/11/22 13:40 36.5 C 68 19 116/54 L 93 Room Air 10/11/22 13:30 73 17 119/51 L 92 Room Air 10/11/22 13:20 78 20 123/57 L 93 Room Air 10/11/22 13:10 80 18 127/59 L 95 Oxymask 10/11/22 13:03 36.6 C 80 18 157/86 H 98 Oxymask 10/11/22 07:36 37.0 C 57 L 16 167/80 H 94 Room Air O2 Flow Rate 10/11/22 14:00 10/11/22 13:40 10/11/22 13:30 10/11/22 13:20 10/11/22 13:10 4 10/11/22 13:03 10 10/11/22 07:36 Pain Intensity Throat: Pain Intensity: 2 Transfer of Care Handoff Completed per policy Notes Mental Status: alert / awake / arousable and participated in evaluation Patient Amnestic to Procedure: Yes Nausea / Vomiting: adequately controlled Pain: adequately controlled Airway Patency, RR, SpO2: stable & adequate BP & HR: stable & adequate Hydration State: stable & adequate Anesthetic Complications: no major complications apparent and Pt Satisfied with anesthetic care
--- NOTE | 2022-10-11 16:11 | Hospitalist Consultation ---
Date of Consultation October 11, 2022 Assessment & Plan (1) S/P left mastectomy: (2) Breast cancer, left: POD#0 left breast mastectomy and sentinel lymph node biopsy today by Dr. Conner Outpatient biopsy showed invasive lobular carcinoma nuclear grade 1, HER2 negative and ER/MA positive. Management as per general surgery exam findings noted Drainage bulb left mastectomy + scds in place lovenox for dvt prophylaxis Current Inpatient Medications Allopurinol (Allopurinol 300 Mg Tab) 300 mg PO QAM [facility] Stop: 11/11/22 08:59 Amlodipine Besylate (Amlodipine Besylate 5 Mg Tab) 10 mg PO QAM [facility] Stop: 11/11/22 08:59 Aspirin (Aspirin 81 Mg Ectab) 81 mg PO QAM [facility] Stop: 11/11/22 08:59 Atenolol (Atenolol 50 Mg Tablet) 50 mg PO QAM [facility] Stop: 11/11/22 08:59 Clonidine HCl (Clonidine Hcl 0.1 Mg Tab) 0.2 mg PO QAM [facility] Stop: 11/11/22 08:59 Clonidine HCl (Clonidine Hcl 0.1 Mg Tab) 0.4 mg PO QPM [facility] Stop: 11/10/22 20:59 Diphenhydramine HCl (Diphenhydramine Capsule 25 Mg Cap) 25 mg PO Q4H PRN PRN Reason: hives, itching or insomnia Stop: 11/10/22 13:59 Enoxaparin Sodium (Enoxaparin Inj 40 Mg/0.4 Ml Syr) 40 mg SQ Q24H [facility] Stop: 11/11/22 06:59 Gabapentin (Gabapentin 100 Mg Cap) 100 mg PO HS [facility] Stop: 11/10/22 20:59 Promethazine HCl 12.5 mg/ (Sodium Chloride) 50.5 mls @ 204 mls/hr IV Q6H PRN PRN Reason: Nausea And Vomiting Stop: 11/10/22 13:59 Morphine Sulfate (Morphine Sulfate 2 Mg/Ml Carp) 2 mg IV Q3H PRN PRN Reason: Pain (1,2,3,4,5) & Pre PT Stop: 10/25/22 13:59 Ondansetron HCl (Ondansetron Inj 2 Mg/Ml 2 Ml Vial) 4 mg IV Q4H PRN PRN Reason: Nausea And Vomiting Stop: 11/10/22 13:59 Oxycodone/Acetaminophen (Oxycodone/Acetaminophen 5mg/325mg Tab) 1 tab PO Q4H PRN PRN Reason: MODERATE Pain (4,5,6) & Pre PT Stop: 10/25/22 13:59 Last Admin: 10/11/22 14:22 Dose: 1 tab Potassium Citrate (Potassium Citrate 10 Meq Tab) 10 meq PO BID [facility] Stop: 11/10/22 20:59 Simvastatin (Simvastatin 10 Mg Tab) 10 mg PO HS [facility] Stop: 11/10/22 20:59 (3) HTN (hypertension): BP controlled, continue amlodipine, atenolol, clonidine (4) Gout: Continue allopurinol (5) HLD (hyperlipidemia): Continue statin DVT PROPHYLAXIS SQ Lovenox as per general surgery Patient seen in collaboration with Dr. Cox. Thank you for this consultation. We will follow the patient with you during their hospital stay. You can reach a member of the [facility] Hospitalist Team 27/12 via the [facility] Hospitalist role in [place] [employer]. Supervising Physician Co-Signing Physician Notes post op day 1 left mastectomy will continue with medical managedmnt History of Present Illness Reason for Consultation: Post Op Medical Management Requesting Physician: Dr. Kevin Conner Attending Physician: Kevin Conner MD History of Present Illness 82-year-old female with PMH dyslipidemia, macular degeneration, HTN, bilateral nephrolithiasis, and other problems listed below who is s/p left breast mastectomy and sentinel lymph node biopsy. Outpatient biopsy showed invasive lobular carcinoma nuclear grade 1, HER2 negative and ER/MA positive. Patient was referred for elective procedure today. Postoperatively, the patient is doing well. She reports her pain is well controlled. No chest pain or shortness of breath. Denies lightheadedness and dizziness. No abdominal pain or nausea. Allergies Allergy/AdvReac Type Severity Reaction Status Date / Time Penicillins Allergy Intermediate RASH Verified 09/30/22 15:06 atorvastatin Allergy Unknown MULTIPLE Verified 09/30/22 15:06 BRUISES indapamide AdvReac Unknown LOWERED Unverified 09/30/22 15:06 POTASSIUM lisinopril AdvReac Unknown Unknown Unverified 09/30/22 15:06 Home Medications Medication Instructions Recorded Confirmed Type allopurinol 300 mg tablet 300 mg PO QAM 09/30/22 10/11/22 History amlodipine 10 mg tablet 10 mg PO QAM 09/30/22 10/11/22 History aspirin 81 mg capsule 81 mg PO QAM 09/30/22 10/11/22 History atenolol 50 mg tablet 50 mg PO QAM 09/30/22 10/11/22 History clonidine HCl 0.2 mg tablet 0.2 mg PO UD 09/30/22 10/11/22 History gabapentin 100 mg capsule 100 mg PO HS 09/30/22 10/11/22 History meloxicam 15 mg tablet 15 mg PO DAILY PRN Pain 09/30/22 10/11/22 History multivitamin 1 tab PO QAM 09/30/22 10/11/22 History peg 400-propylene glycol 0.4 %-0.3 1 drp ophthalmic (eye) DAILY PRN ud 09/30/22 10/11/22 History % eye drops (Systane (propylene glycol)) potassium citrate 10 mEq (1,080 10 meq PO BID 09/30/22 10/11/22 History mg) tablet,extended release simvastatin 10 mg tablet 10 mg PO HS 09/30/22 10/11/22 History Patient History Medical History (Updated 10/11/22 @ 16:15 by VIDA Millan) Back muscle spasm Bilateral nephrolithiasis Breast cancer, left Cataract Gout Hearing deficit BL FRENCH HLD (hyperlipidemia) HTN (hypertension) Nephrolithiasis Osteoarthritis Overactive bladder Sleep apnea unable to tolerate CPAP Surgical History History of cholecystectomy History of colonoscopy History of hand surgery left History of hysterectomy History of left hip replacement History of left knee replacement History of left shoulder replacement History of lithotripsy History of nephrolithotomy with removal of calculi History of right hip replacement History of right knee joint replacement History of right shoulder replacement S/P left mastectomy Social History Smoking Status: Never smoker Second Hand Exposure: Yes (hx); Do You Dip or Chew Tobacco: No; Hx Alcohol Use: No Hx Substance Use: No Preferred Language: Romansh Communication Ability: Effective Manuscripts Curator Required: No Beliefs That Will Affect Care: None Current Living Situation: Alone Feels Safe at Home: Yes Safety Concerns: Feels Safe At This Time Assistive Devices: Glasses, Hearing Aid - Bilateral and Walker Assistive Devices Comment: walker prn Review of Systems Review of Systems: ROS per HPI, all other systems reviewed and negative Physical Exam Constitutional: WD/WN, vitals as above + obese Eyes: PERRL, conjunctivae normal, anicteric sclerae ENMT: external ear and nose normal, oropharynx normal Respiratory: normal respiratory effort, lungs clear to auscultation Cardiovascular: Rate/Rhythm: regular rate and regular rhythm Vessels: normal peripheral pulses Extremities: no edema Chest (Breasts): Additional Comments: s/p left mastectomy, surgical dressing CDI, drain in place draining bloody drainage Gastrointestinal (Abdomen): normal bowel sounds, soft, nontender, no hepatosplenomegaly Musculoskeletal: no cyanosis or clubbing, extremities motor strength 5/5 Skin: no rashes, warm and dry Neurologic: PERRL, EOMI, accommodation nl, no face palsy, no dysarthria Psychiatric: A+Ox3, euthymic affect Results & Data Results & Data Vital Signs (Past 12 Hours) Vital Signs Temp Pulse Pulse Resp BP Pulse Ox O2 Del Method 10/11/22 15:00 36.4 C L 61 16 126/67 90 Room Air 10/11/22 14:30 36.4 C L 64 16 125/72 90 Room Air 10/11/22 14:00 36.5 C 67 16 132/69 94 Room Air 10/11/22 13:40 36.5 C 68 19 116/54 L 93 Room Air 10/11/22 13:30 73 17 119/51 L 92 Room Air 10/11/22 13:20 78 20 123/57 L 93 Room Air 10/11/22 13:10 80 18 127/59 L 95 Oxymask 10/11/22 13:03 36.6 C 80 18 157/86 H 98 Oxymask 10/11/22 07:36 37.0 C 57 L 16 167/80 H 94 Room Air O2 Flow Rate 10/11/22 15:00 10/11/22 14:30 10/11/22 14:00 10/11/22 13:40 10/11/22 13:30 10/11/22 13:20 10/11/22 13:10 4 10/11/22 13:03 10 10/11/22 07:36
[2022-10-11] MEDS: POTASSIUM CITRATE 10 MEQ TAB PO SCH (20:55)
[2022-10-11] MEDS ORDERED: SIMVASTATIN 10 MG TAB PO SCH (21:00)
[2022-10-11] MEDS ORDERED: GABAPENTIN 100 MG CAP PO SCH (21:00)
[2022-10-11] MEDS ORDERED: cloNIDine HCL 0.1 MG TAB PO SCH (21:00)
[2022-10-12] MEDS ORDERED: ENOXAPARIN INJ 40 MG/0.4 ML SYR SQ SCH (07:00)
--- NOTE | 2022-10-12 07:49 | Surgery Progress Note ---
Date of Service October 12, 2022 Assessment & Plan (1) S/P left mastectomy: (2) Breast cancer, left: Plan POD#1 s/p left breast mastectomy and left SLN biopsy for infiltrating lobular carcinoma of the left breast doing well encourage OOB/ambulation SCDs and Lovenox for DVT prophylaxis pain control as needed Drain teaching for home D/C to home today fu in clinic in 2 weeks Admission and Anticipated Discharge Date Admission Date: October 11, 2022 Subjective doing well this am. no pain. tolerating diet without n/v Physical Exam Physical Exam: AFVSS NAD A&Ox3 Dressing C/D/I MIMI with serosang drainage Results & Data Vital Signs (Past 12 Hours) Vital Signs Temp Pulse Resp BP Pulse Ox O2 Del Method 10/12/22 07:10 36.7 C 61 16 134/76 93 Room Air 10/12/22 04:30 36.7 C 62 16 124/71 92 Room Air 10/11/22 22:47 36.5 C 61 18 101/61 93 Room Air
[2022-10-12 07:51] LABS: BUN Creatinine Ratio 28.3 (10-20); Calcium 8.7 mg/dl (8.6-10.3); Creatinine Clr Calc Pharmacy 44.9 ml/min; Est GFR (African American) 52.4 ml/min; Est GFR (Non-African American) 45.2 ml/min; Potassium 4.6 mmol/L (3.5-5.1)
[2022-10-12 07:54] LABS: Hematocrit (blood only) 43.3 % (37.0-47.0); Hemoglobin 14.7 g/dl (12.0-16.0); Mean Corpuscular Hemoglobin 29.9 pg (25.0-34.0); Mean Corpuscular Hgb Conc 33.9 g/dL (32.0-36.0); Mean Platelet Volume 12.1 fL (9.4-12.4); Platelet Count 164 K/uL (130-400); RDW Coefficient of Variation 14.9 % (11.5-14.5); RDW Standard Deviation 47.8 fL (36.4-46.3); Red Blood Count 4.92 M/uL (4.20-5.40)
[2022-10-12] MEDS: POTASSIUM CITRATE 10 MEQ TAB PO SCH (08:06)
[2022-10-12] MEDS ORDERED: ASPIRIN 81 MG ECTAB PO SCH (09:00)
[2022-10-12] MEDS ORDERED: amLODIPine BESYLATE 5 MG TAB PO SCH (09:00)
[2022-10-12] MEDS ORDERED: ATENOLOL 50 MG TABLET PO SCH (09:00)
[2022-10-12] MEDS ORDERED: allopurinoL 300 MG TAB PO SCH (09:00)
[2022-10-12] MEDS ORDERED: cloNIDine HCL 0.1 MG TAB PO SCH (09:00)
--- NOTE | 2022-10-15 08:53 | Discharge Summary ---
Date of Service October 15, 2022 Admission HPI Per Admitting Provider Carmelita is a 82 year-old female who presented to [facility] for elective left breast mastectomy and sentinel lymph node biopsy for multifocal , multicentric lobular cancer of left breast. Principal Diagnosis Left breast cancer Discharge Data Allergies Allergy/AdvReac Type Severity Reaction Status Date / Time Penicillins Allergy Intermediate RASH Verified 09/30/22 15:06 atorvastatin Allergy Unknown MULTIPLE Verified 09/30/22 15:06 BRUISES indapamide AdvReac Unknown LOWERED Unverified 09/30/22 15:06 POTASSIUM lisinopril AdvReac Unknown Unknown Unverified 09/30/22 15:06 Consultations 10/11/22 14:00 Consult Hospitalist Routine Procedures Performed Operation Date: 10/11/22 09:35 Actual Procedures p Left Breast Mastectomy and Left Pep Lymph Node Biopsy(Left) - Kevin Conner MD Ordered Studies 10/11/22 05:00 US - OR guided needle placemen Routine Hospital Course (1) S/P left mastectomy: (2) Breast cancer, left: Plan Patient was taken to operating room for left breast mastectomy and left sentinel lymph node biopsy by Dr. Kevin Conner on 10/11/2022. Patient tolerated procedure well and was transferred to recovery then to medical/surgical floor for postoperative care. She had drain placed and Exparel was used for long acting local anesthetic. Diet advanced as tolerated, pain management as needed, activity as tolerated. Hospitalist consulted for comanagement in which home medications were continued. Patient was discharged home on POD#1 in stable condition with esteban drain. She will have post surgical follow-up in 2 weeks. [facility] hospital course was uneventful. Total Time Total Time Spent Total Time Spent (In Minutes): 20 minutes Discharge Plan Discharge Items Patient Disposition: Home - Self-Care Reason For Visit: Lobular Carcinoma of Left Breast Discharge Diagnosis: lobular carcinoma of left breast Activity: Per Instructions section Lifting: No more than 10 pounds Sexual Activity: Wait until after follow-up appointment Exercise/Sports: Wait until after follow-up appointment Non-emergency contact: Surgeon Call non-emergency contact if: you have any medication questions, your symptoms worsen, your pain is not controlled, your pain is worsening, your pain is unusual for you, your pain is concerning for you, your temperature is above 101.5, your wound has increased redness, your wound has increased drainage and your wound pain has increased Follow-up/Referrals: Kevin Conner MD [Physician] - (PATIENT NEEDS TO CALL OFFICE TO SCHEDULE FOLLOW UP APPOINTMENT. PATIENT IS RECORDING DRAIN OUTPUT. ONCE REACHES 25CC/DAY FOR 2 DAYS; CALL OFFICE [phone] TO SCHEDULE DRAIN REMOVAL APPOINTMENT.) Radha Gilbert, [Primary Care Provider] - Diet: Regular and Heart Healthy Addtl Attending Provider Instructions: ACTIVITY RECOMMENDATIONS: * No lifting, pushing, pulling or exercising the affected side for three days. RETURN TO SCHOOL/WORK: * You may return to work/school in 1-2 weeks, but do not perform any strenuous activities for 2 weeks. MEDICATIONS: * Percocet as directed for severe pain * Tylenol (two 325 mg) every four to six hours if needed for mild pain (if not allergic to Tylenol). DIET: * Resume previous diet. SPECIAL CARE INSTRUCTIONS: * Keep incision dry for 36 hours. May shower after 36 hours, but do not soak (bathe) incision. Keep drain site dry * May remove dressing tomorrow. * Empty and record drain output as directed. When drainage is below 25 mL / day for 2 days, call for appt for drain removal. * Leave the steri-strips on for one week. Allow the steri-strips to fall off by themselves. If not off after one week, you may remove them. You may place a Bandaid crosswise over the strips, if desired. * Apply ice 10 minutes on and 10 minutes off as needed. * Wear a bra at bedtime to sleep more comfortably for 2-3 days. * Your referring physician should have the results after approximately 5 to 7 business days. * For any unusual bleeding, fever, drainage, etc., or if you have any questions, please call the Office at [phone] during normal business hours. * For an emergency after hours, please go to the nearest emergency room. FOLLOW UP VISIT: Follow-up with Referring Physician as scheduled. Pending Studies at Discharge: No Stand-Alone Forms: My [place], Smoking Cessation Medications and DC Order Prescriptions: New oxycodone-acetaminophen [Percocet] 5-325 mg tablet 1 tab PO Q6H PRN (Reason: pain) Qty: 10 0RF Continued multivitamin Tablet 1 tab PO QAM meloxicam 15 mg Tablet 15 mg PO DAILY PRN (Reason: Pain) simvastatin 10 mg Tablet 10 mg PO HS clonidine HCl 0.2 mg Tablet 0.2 mg PO UD Rx Instructions: 0.2mg in the AM, 0.4mg in the PM amlodipine 10 mg Tablet 10 mg PO QAM potassium citrate 10 mEq (1,080 mg) Tablet Extended Release 10 meq PO BID allopurinol 300 mg Tablet 300 mg PO QAM gabapentin 100 mg Capsule 100 mg PO HS atenolol 50 mg Tablet 50 mg PO QAM Systane (propylene glycol) 0.4-0.3 % Drops 1 drp OPHTHALMIC (EYE) DAILY PRN (Reason: ud) aspirin 81 mg Capsule 81 mg PO QAM Discharge Orders: Discharge Order (Routine); Ordered 10/12/22 Ordered By: Kevin Lim/Other Patient Handouts: Cullen Batista Drain Tube Dc Admission Data Admit Date/Time: 10/11/22 13:00 Attending Provider: Kevin Conner Admit Provider: Kevin Conner Primary Care Provider: Radha Gilbert Other Providers: Marycruz Marie ; Laurita Rai I. ; Keyur Marques ; Kriss Falcon ; Junie Rapp ; Shyla Stiles ; Aminata Kimbrough ; Jeff Ramos ; Jim Lee ; Esau Dahl ; Anat Calvo ; Kurt Kate ; Roseann Pack ; Lisa Stewart ; Shonna Palumbo ; Jered Bowman ; Carmen Coburn ; Nena Mascorro ; Trevin Elder ; Lamar Tong I. ; Ray Ballard ; Giuliano Monge ; Rick Hinson ; Enmanuel Jameson ; Keanu Parikh ; Jam Kelsey ; Richard Dillard ; Danial Elizabeth ; Daphne Osorio ; Guanako Cox Other Interventions: Discharge Summary Assessment (RN) Last Done: 10/12/22 09:17
== END 2022-10-12 10:19 | disposition home or self-care (01) ==
LOC: ASU 06:35 → 3W 06:35